=== PATIENT | female | born 1950 | race Caucasian/White ===

== ENCOUNTER 2024-04-15 00:28 | Emergency (ER) | payer MEDICARE, MEDICAID ==
[~2024-04-15] VITALS: Ht 157.5 cm; Wt 55.0 kg
[2024-04-15 00:37] VITALS: O2SAT 99
[2024-04-15 01:08] LABS: BASOPHILS % 0.6 % (0.0-2.0); EOSINOPHILS % 1.2 % (0.0-5.0); HEMATOCRIT. 36.2 % (36.0-48.0); HEMOGLOBIN. 12.3 g/dL (12.0-16.0); LYMPHOCYTES % 20.7 % (20.0-50.0); MEAN CORPUSCULAR HEMOGLOBIN 29.1 pg (28.0-32.0); MEAN CORPUSCULAR VOLUME 85.4 fL (81.0-99.0); MEAN PLATELET VOLUME 7.8 fl (7.4-10.4); MONOCYTES % 7.4 % (2.0-8.0); NEUTROPHILS % 70.1 % (40.0-76.0); PLATELET 217 x1000/uL (130-400); RED BLOOD CELL COUNT 4.24 mill/uL (4.2-5.4); RED CELL DISTRIBUTION WIDTH 13.7 % (11.6-14.6)
[2024-04-15 01:17] LABS: CHLORIDE 103 mEq/L (98-107); POTASSIUM 3.5 mEq/L (3.5-5.1); SODIUM 137 mEq/L (136-145)
[2024-04-15 01:18] LABS: CARBON DIOXIDE 27 mEq/L (21-32)
[2024-04-15 01:23] LABS: CREATININE 0.7 mg/dL (0.6-1.0); GLUCOSE 278 mg/dL (70-105); UREA NITROGEN BLOOD 14 mg/dL (9-23)
[2024-04-15 01:29] LABS: TROPONIN I HIGH SENSITIVITY 35 ng/L (3.0-34)
[2024-04-15] MEDS: ACETAMINOPHEN 325MG TABLET PO ONE (04:28)
[2024-04-15 05:06] LABS: TROPONIN I HIGH SENSITIVITY 36 ng/L (3.0-34)
[2024-04-15 07:34] VITALS: BP 160/73; PULSE 94; RESP 18; TEMP 36.72516; O2SAT 96
== END 2024-04-15 07:36 | disposition home or self-care (01) ==
LOC: ER 00:28
DX: R51.9 Headache, unspecified (principal); M54.2 Cervicalgia; M79.605 Pain in left leg; M79.602 Pain in left arm; E11.9 Type 2 diabetes mellitus without complications; Z86.73 Personal history of transient ischemic attack (TIA), and cerebral infarction without residual deficits; Z98.890 Other specified postprocedural states; W06.XXXA Fall from bed, initial encounter; Y93.89 Activity, other specified; Y92.89 Other specified places as the place of occurrence of the external cause; Y99.8 Other external cause status
CPT/HCPCS: 36415; 71045; 73080; 73502; 80048; 83880; 84484; 85025; 93005; 99285